=== PATIENT | female | born 1995 | race Caucasian/White ===

== ENCOUNTER 2017-10-11 16:56 | Observation (INO) ==
[2017-10-11] MEDS ORDERED: Sod Chloride 0.9% Inj 1,000 ML IV.SIG ONE (17:27)
--- NOTE | 2017-10-11 17:30 | ED ---
HPI General Chief Complaint: Altered Mental Status Stated Complaint: Ams Time Seen by Provider: 10/11/17 17:14 Source: patient and family Mode of arrival: ambulatory Limitations: altered mental status History of Present Illness HPI narrative: The patient is a 22-year-old female who presents to the emergency department with her mother for altered mental status. The patient apparently went out with several friends last night, was out till 2 AM. The patient minutes to drinking vodka last night and ingesting 2 pills, unknown name. The patient apparently told the mother that they were sleep medications for kidney transplant patients. However, the mother states the patient has been staring at her phone all day, picking at things, and is slow to respond. The patient is alert and oriented 4, denies any commands, but is obviously slow to respond. The patient does not know the name of the medications that she took last night. 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 The patient is allergic to Omnicef. complaint: altered mental status Onset (ago): hour(s) Timing confirmed by: family member Severity: moderate Consistency of symptoms: constant Associated symptoms: denies other symptoms Related Data Allergies Allergy/AdvReac Type Severity Reaction Status Date / Time No Known Allergies Allergy Unverified 10/11/17 17:27 Review of Systems ROS Unobtainable unobtainable due to mental status Except as stated in HPI: all other systems reviewed are negative (History obtained from patient and mother, patient is slow to respond, she denies any physical complaints) [facility] Medical History Medical History Patient denies medical problems (Acute) Surgical History Surgical History No history of previous surgery (Acute) Social History Social History Substance History: Unable to Obtain Smoking Status: Never smoker How Often Do You Have a Drink Containing Alcohol: Never Recent Travel in [facility] within the Last 8 Weeks: No Recent Out of Country Travel within the Last 8 Weeks: Yes Exam Narrative Exam Narrative: GENERAL: Awake, alert, slow to respond 22-year-old female who appears her stated age and is in no acute respiratory distress. SKIN: Focused skin assessment warm/dry. HEAD: Atraumatic. Normocephalic. EYES: Pupils equal and round. 4 mm bilateral and reactive. EOMs are intact. Patient is wearing glasses. She is able to count fingers at a distance of 2 feet without difficulty. ENT: No nasal bleeding or discharge. Mucous membranes pink and moist. Lip smacking noted. NECK: Trachea midline. No JVD. No meningeal signs. CARDIOVASCULAR: Regular, tachycardic with a heart rate of 120. RESPIRATORY: No accessory muscle use. Clear to auscultation. Breath sounds equal bilaterally. GASTROINTESTINAL: Abdomen soft, non-tender, nondistended. MUSCULOSKELETAL: No obvious deformities. No clubbing. No cyanosis. No edema. NEUROLOGICAL: Awake and alert. Slow to respond. Lip smacking noted. Oriented 4. Follows simple commands. Moves all 4 extremities. PSYCHIATRIC: Odd affect. Course Initial Documented Vital Signs Temperature 99.0 F 10/11/17 17:03 Pulse Rate 117 H 10/11/17 17:03 Respiratory Rate 20 10/11/17 17:03 Blood Pressure 114/69 10/11/17 17:03 Pulse Oximetry 100 10/11/17 17:03 Last Documented Vital Signs Temperature 99.0 F 10/11/17 17:03 Pulse Rate 117 H 10/11/17 17:03 Respiratory Rate 20 10/11/17 17:03 Blood Pressure 114/69 10/11/17 17:03 Pulse Oximetry 100 10/11/17 19:45 Medical Decision Making MDM Narrative Medical decision making narrative: IV was established, labs are drawn and sent, and the patient was placed on cardiac telemetry monitoring and continuous pulse oximetry monitoring. EKG was ordered and interpreted. CT the brain was obtained. Tox screen and alcohol level were sent to lab. Poison control was notified by nursing staff. Poison control states that the patient possibly could have ingested some type of medication such as Benadryl with anticholinergic effects. However, the patient is currently 18 hours or so after ingestion and still symptomatic. Therefore, the patient will be a 23 hour observation to medicine, may benefit from evaluation by psychiatry and neurology. Unsure if this is drug ingestion versus acute schizophrenia versus encephalopathy. Laboratory evaluation is unremarkable. Differential Diagnosis Differential Diagnosis: Differential diagnosis includes drug ingestion, substance abuse, schizophrenia, catatonic schizophrenia, drug-induced parkinsonian syndrome, alcohol intoxication, hyponatremia, electrolyte abnormality, encephalitis, encephalopathy. Lab Data Lab results reviewed: Yes I reviewed the patient's lab results. Lab results narrative: Labs are unremarkable. Result diagrams: 10/11/17 17:50 10/11/17 17:50 Lab Results 10/11/17 10/11/17 10/11/17 Range/Units 17:50 17:50 17:50 WBC 7.2 (4.0-11.0) th/mm3 RBC 4.36 (4.00-5.30) mil/mm3 Hgb 13.7 (11.6-15.3) gm/dL Hct 38.8 (35.0-46.0) % MCV 89.0 (80.0-100.0) fL MCH 31.4 (27.0-34.0) pg MCHC 35.3 (32.0-36.0) % RDW 12.8 (11.6-17.2) % Plt Count 254 (150-450) th/mm3 MPV 8.0 (7.0-11.0) fL Neut % (Auto) 68.7 (16.0-70.0) % Lymph % (Auto) 23.7 (9.0-44.0) % [place] % (Auto) 7.1 (0.0-8.0) % Eos % (Auto) 0.1 (0.0-4.0) % Baso % (Auto) 0.4 (0.0-2.0) % Neut # (Auto) 5.0 (1.8-7.7) th/mm3 Lymph # (Auto) 1.7 (1.0-4.8) th/mm3 [place] # (Auto) 0.5 (0.0-0.9) th/mm3 Eos # (Auto) 0.0 (0.0-0.4) th/mm3 Baso # (Auto) 0.0 (0.0-0.2) th/mm3 WBC Differential . Differential Comment Auto diff final PT 10.2 (9.8-11.6) sec INR 1.0 Ratio APTT 25.4 (24.3-30.1) sec Sodium 139 (136-145) meq/L Potassium 4.0 (3.5-5.1) meq/L Chloride 106 (98-107) meq/L Carbon Dioxide 25.1 (21.0-32.0) meq/L Anion Gap 8 (5-15) meq/L BUN 7 (7-18) mg/dL Creatinine 0.78 (0.50-1.00) mg/dL Estimated GFR Greater than 89 (>89) mL/min Random Glucose 95 (74-106) mg/dL Lactic Acid (0.4-2.0) mmol/L Calcium 9.0 (8.5-10.1) mg/dL Total Bilirubin 0.7 (0.2-1.0) mg/dL AST 30 (16-38) U/L ALT 26 (9-42) U/L Alkaline Phosphatase 72 (45-117) U/L Ammonia (11-32) mcmol/L Total Creatine Kinase 548 H (26-192) U/L CK-MB (CK-2) 12.8 H (0.5-3.6) ng/mL CK-MB (CK-2) % 2.3 (0.0-4.0) % Troponin I Less than 0.02 L (0.02-0.05) ng/mL Total Protein 7.6 (6.4-8.2) g/dL Albumin 4.3 (3.4-5.0) g/dL TSH 3.350 (0.358-3.740) uIU/mL Urine Opiates Screen (Neg) Ur Barbiturates Screen (Neg) Ur Amphetamines Screen (Neg) U Benzodiazepines Scrn (Neg) Urine Cocaine Screen (Neg) U Cannabinoids Screen (Neg) Serum Alcohol Less than 3 (0-5) mg/dL 10/11/17 10/11/17 10/11/17 Range/Units 17:50 17:50 19:59 WBC (4.0-11.0) th/mm3 RBC (4.00-5.30) mil/mm3 Hgb (11.6-15.3) gm/dL Hct (35.0-46.0) % MCV (80.0-100.0) fL MCH (27.0-34.0) pg MCHC (32.0-36.0) % RDW (11.6-17.2) % Plt Count (150-450) th/mm3 MPV (7.0-11.0) fL Neut % (Auto) (16.0-70.0) % Lymph % (Auto) (9.0-44.0) % [place] % (Auto) (0.0-8.0) % Eos % (Auto) (0.0-4.0) % Baso % (Auto) (0.0-2.0) % Neut # (Auto) (1.8-7.7) th/mm3 Lymph # (Auto) (1.0-4.8) th/mm3 [place] # (Auto) (0.0-0.9) th/mm3 Eos # (Auto) (0.0-0.4) th/mm3 Baso # (Auto) (0.0-0.2) th/mm3 WBC Differential Differential Comment PT (9.8-11.6) sec INR Ratio APTT (24.3-30.1) sec Sodium (136-145) meq/L Potassium (3.5-5.1) meq/L Chloride (98-107) meq/L Carbon Dioxide (21.0-32.0) meq/L Anion Gap (5-15) meq/L BUN (7-18) mg/dL Creatinine (0.50-1.00) mg/dL Estimated GFR (>89) mL/min Random Glucose (74-106) mg/dL Lactic Acid 1.8 (0.4-2.0) mmol/L Calcium (8.5-10.1) mg/dL Total Bilirubin (0.2-1.0) mg/dL AST (16-38) U/L ALT (9-42) U/L Alkaline Phosphatase (45-117) U/L Ammonia 19 (11-32) mcmol/L Total Creatine Kinase (26-192) U/L CK-MB (CK-2) (0.5-3.6) ng/mL CK-MB (CK-2) % (0.0-4.0) % Troponin I (0.02-0.05) ng/mL Total Protein (6.4-8.2) g/dL Albumin (3.4-5.0) g/dL TSH (0.358-3.740) uIU/mL Urine Opiates Screen Neg (Neg) Ur Barbiturates Screen Neg (Neg) Ur Amphetamines Screen Neg (Neg) U Benzodiazepines Scrn Neg (Neg) Urine Cocaine Screen Neg (Neg) U Cannabinoids Screen Pos H (Neg) Serum Alcohol (0-5) mg/dL Imaging Data Radiologist's impression: Head CT 10/11/17 17:27 CONCLUSION: CT of the brain is negative ECG Data EKG Prior to Arrival: No Attestation: I personally reviewed and interpreted this ECG as follows: Interpretation: EKG reveals normal sinus rhythm with a rate of 98 ectopy noted. Discharge Plan Discharge Disposition Patient Disposition: 30 Still Patient Discharge Condition Condition: Stable Discharge Details Diagnosis: Altered mental status Physicians Team ED Provider: Delon Cohn Primary Care Provider: Primary Care Heather Gilbert Attending Provider: Ernestina Winter Discharge Interventions Interventions: Vital Signs Last Done: 10/11/17 17:03 Status ED Status: Admitted Observation Patient
[2017-10-11 18:01] LABS: Baso % (Auto) 0.4 % (0.0-2.0); Eos % (Auto) 0.1 % (0.0-4.0); Hematocrit 38.8 % (35.0-46.0); Hemoglobin 13.7 gm/dL (11.6-15.3); Lymph # (Auto) 1.7 th/mm3 (1.0-4.8); Lymph % (Auto) 23.7 % (9.0-44.0); Mean Corpuscular HGB Conc 35.3 % (32.0-36.0); Mean Corpuscular Hemoglobin 31.4 pg (27.0-34.0); Mono # (Auto) 0.5 th/mm3 (0.0-0.9); Mono % (Auto) 7.1 % (0.0-8.0); Neut % (Auto) 68.7 % (16.0-70.0); Platelet Count 254 th/mm3 (150-450); Red Blood Count 4.36 mil/mm3 (4.00-5.30); Red Cell Distribution Width 12.8 % (11.6-17.2); White Blood Count 7.2 th/mm3 (4.0-11.0)
[2017-10-11 18:10] LABS: Activated Partial Thrombo Time 25.4 sec (24.3-30.1); Prothrombin Time 10.2 sec (9.8-11.6)
[2017-10-11 18:39] LABS: Alkaline Phosphatase 72 U/L (45-117); Creatine Kinase 548 U/L (26-192); Total Protein 7.6 g/dL (6.4-8.2)
[2017-10-11 18:46] LABS: Alanine Aminotransferase 26 U/L (9-42); Albumin 4.3 g/dL (3.4-5.0); Anion Gap 8 meq/L (5-15); Aspartate Aminotransferase 30 U/L (16-38); Blood Urea Nitrogen 7 mg/dL (7-18); Carbon Dioxide 25.1 meq/L (21.0-32.0); Chloride 106 meq/L (98-107); Glomerular Filtration Rate Greater Than 89 mL/min (>89); Glucose,Random 95 mg/dL (74-106); Sodium 139 meq/L (136-145)
[2017-10-11 19:09] LABS: CKMB Percent 2.3 % (0.0-4.0); Creatine Kinase MB 12.8 ng/mL (0.5-3.6)
[2017-10-11 21:03] LABS: Amphetamine Screen,Urine Neg (Neg); Barbiturate Screen,Urine Neg (Neg); Cannabinoid Screen,Urine Pos (Neg); Cocaine Screen,Urine Neg (Neg)
[2017-10-11 21:10] LABS: Opiate Screen,Urine Neg (Neg)
[2017-10-11] MEDS ORDERED: Acetaminophen 325 MG Tablet PO PRN (21:42)
--- NOTE | 2017-10-11 21:42 | CT ---
EXAM DATE: 10/11/2017 8:59 PM EDT AGE/SEX: 22 years / Female INDICATIONS: Altered mental status. CLINICAL DATA: This is the patient's initial encounter. Patient reports that signs and symptoms have been present for 1 day and indicates a pain score of 0/10. MEDICAL/SURGICAL HISTORY: None. None. RADIATION DOSE: 56.35 CTDI (mGy) COMPARISON: No prior exams available for comparison. TECHNIQUE: CT of the head without contrast. Using automated exposure control and adjustment of the mA and/or kV according to patient size, radiation dose was kept as low as reasonably achievable to ob tain optimal diagnostic quality images. DICOM format image data is available electronically for revi ew and comparison. FINDINGS: Cerebrum: The ventricles are normal for age. No evidence of midline shift, mass lesion, hemorrhage or acute infarction. No extraaxial fluid collections are seen. Posterior Fossa: The cerebellum and brainstem are intact. The 4th ventricle is midline. The cerebe llopontine angle is unremarkable. Extracranial: The visualized portion of the orbits is intact. Skull: The calvaria is intact. No evidence of skull fracture. Negative noncontrasted CT examination. . Electronically signed by: Maikol Hernandez MD 10/11/2017 9:41 PM EDT
[2017-10-11] MEDS ORDERED: Sod Chloride 0.9% Inj 1,000 ML IV.CONT SCH (21:45)
--- NOTE | 2017-10-11 21:58 | ECG ---
Date Performed: 10/11/2017 Time Performed: 18:53:36 PTAGE: 22 years EKG: Baseline artifact present Sinus rhythm NORMAL ECG NO PREVIOUS TRACING DOCTOR: Mathieu Luna Interpretating Date/Time 10/11/2017 21:57:15
--- NOTE | 2017-10-11 23:11 | P.HP ---
History of Present Illness Service: [facility] Primary Care Physician: No Primary Care Physician History of Present Illness: 22-year-old female with no significant past medical history presents to the emergency department with her mother for altered mental status. The patient was apparently out with several people that she had just met last night and drank vodka. She also admits to ingesting 2 pills that are unknown. The patient states that the pills were for kidney transplant patients to help her sleep and that the name began with fatigue. She is alert and oriented 4 however is very slow to respond to questions and commands. She denies any pain. No fever/chills. No observed seizure activity. Patient also has a repetitive lip smacking motion. Review of Systems All other systems reviewed negative except as stated in [facility] - History History Provided By: Family Member - Medical History Medical History: Medical History (Last Updated 10/11/17 @ 18:39 by Linda Sung) Patient denies medical problems - Surgical History Surgical History: Surgical History (Last Updated 10/11/17 @ 18:39 by Linda Sung) No history of previous surgery - Tobacco History Smoking Status: Never smoker - Alcohol History How Often Do You Have a Drink Containing Alcohol: Never - Substance Use History Substance History: Unable to Obtain - Travel History Recent Travel in the [place] Within the Last 8 Weeks: No Recent Travel Out of the Country Within the Last 8 Weeks: Yes - Immunization History Tetanus Immunization: <5 Years Medications and Allergies Active Medications: Active Medications Acetaminophen (Tylenol) 650 mg PO Q4H PRN PRN Reason: Temp > 100.4 Sodium Chloride (Ns Inj) 1,000 mls @ 100 mls/hr IV.CONT .Q10H OLEGARIO Last Admin: 10/11/17 22:09 Dose: 100 mls/hr Ondansetron HCl (Zofran Inj) 4 mg IV.PUSH Q6H PRN PRN Reason: NAUSEA OR VOMITING Sodium Chloride (Ns Flush) 2 ml IV.FLUSH PRN PRN PRN Reason: FLUSH AFTER USING IV ACCESS Allergies Allergy/AdvReac Type Severity Reaction Status Date / Time No Known Allergies Allergy Unverified 10/11/17 17:27 Exam Vital signs: Vital Signs 10/11/17 17:03 10/11/17 19:45 Temperature 99.0 F Pulse Rate 117 H Respiratory Rate 20 Blood Pressure 114/69 Pulse Oximetry 100 100 Intake & Output 10/11/17 10/11/17 10/12/17 06:59 18:59 06:59 Weight 64.864 kg Narrative: Gen.: No acute distress Head: Normocephalic. Atraumatic. EENT: Pupils equal round and reactive to light. Nose without drainage. Airway intact. Throat without injection. Cardiovascular: Regular rate and rhythm. No murmurs, rubs or gallops. Respiratory: Lungs clear to auscultation bilaterally. No wheezes or rhonchi. Abdomen: Soft, nontender, nondistended. No peritoneal signs. Musculoskeletal: No gross deformities. No edema. Skin: No obvious rashes or erythema. Neuro: Sensory and motor intact. Cranial nerves II through XII intact. 5/5 strength throughout although patient is incredibly slow to respond to following commands and moves and speaks as if she is in slow motion. Speech is quiet and mildly slurred. Results - Labs CBC & Chem 7: 10/11/17 17:50 10/11/17 17:50 Labs: Laboratory Results - last 24 hr 10/11/17 10/11/17 10/11/17 17:50 17:50 17:50 WBC 7.2 RBC 4.36 Hgb 13.7 Hct 38.8 MCV 89.0 MCH 31.4 MCHC 35.3 RDW 12.8 Plt Count 254 MPV 8.0 Neut % (Auto) 68.7 Lymph % (Auto) 23.7 [place] % (Auto) 7.1 Eos % (Auto) 0.1 Baso % (Auto) 0.4 Neut # (Auto) 5.0 Lymph # (Auto) 1.7 [place] # (Auto) 0.5 Eos # (Auto) 0.0 Baso # (Auto) 0.0 WBC Differential . Differential Comment Auto diff final PT 10.2 INR 1.0 APTT 25.4 Sodium 139 Potassium 4.0 Chloride 106 Carbon Dioxide 25.1 Anion Gap 8 BUN 7 Creatinine 0.78 Estimated GFR Greater than 89 Random Glucose 95 Lactic Acid Calcium 9.0 Total Bilirubin 0.7 AST 30 ALT 26 Alkaline Phosphatase 72 Ammonia Total Creatine Kinase 548 H CK-MB (CK-2) 12.8 H CK-MB (CK-2) % 2.3 Troponin I Less than 0.02 L Total Protein 7.6 Albumin 4.3 TSH 3.350 Urine Opiates Screen Ur Barbiturates Screen Ur Amphetamines Screen U Benzodiazepines Scrn Urine Cocaine Screen U Cannabinoids Screen Serum Alcohol Less than 3 10/11/17 10/11/17 10/11/17 17:50 17:50 19:59 WBC RBC Hgb Hct MCV MCH MCHC RDW Plt Count MPV Neut % (Auto) Lymph % (Auto) [place] % (Auto) Eos % (Auto) Baso % (Auto) Neut # (Auto) Lymph # (Auto) [place] # (Auto) Eos # (Auto) Baso # (Auto) WBC Differential Differential Comment PT INR APTT Sodium Potassium Chloride Carbon Dioxide Anion Gap BUN Creatinine Estimated GFR Random Glucose Lactic Acid 1.8 Calcium Total Bilirubin AST ALT Alkaline Phosphatase Ammonia 19 Total Creatine Kinase CK-MB (CK-2) CK-MB (CK-2) % Troponin I Total Protein Albumin TSH Urine Opiates Screen Neg Ur Barbiturates Screen Neg Ur Amphetamines Screen Neg U Benzodiazepines Scrn Neg Urine Cocaine Screen Neg U Cannabinoids Screen Pos H Serum Alcohol - Imaging Impressions Head CT 10/11/17 17:27 CONCLUSION: Caprini VTE Risk Assessment Caprini VTE Risk Assessment: No/Low Risk (score <= 1) Caprini Risk Assessment Model: Point Value = 1 Point Value = 2 Point Value = 3 Point Value = 5 Age 41-60 Minor surgery BMI > 25 kg/m2 Swollen legs Varicose veins or History of unexplained or recurrent spontaneous Oral contraceptives or hormone replacement Sepsis (< 1 month) Serious lung disease, including pneumonia (< 1 month) Abnormal pulmonary function Acute myocardial infarction Congestive heart failure (< 1 month) History of inflammatory bowel disease Medical patient at bed rest Age 61-74 Arthroscopic surgery Major open surgery (> 45 min) Laparoscopic surgery (> 45 min) Malignancy Confined to bed (> 72 hours) Immobilizing plaster cast Central venous access Age >= 75 History of VTE Family history of VTE Factor V Leiden Prothrombin [id number] Lupus anticoagulant Anticardiolipin antibodies Elevated serum homocysteine Heparin-induced thrombocytopenia Other congenital or acquired thrombophilia Stroke (< 1 month) Elective arthroplasty Hip, pelvis, or leg fracture Acute spinal cord injury (< 1 month) Prophylaxis Regimen: Total Risk Factor Score Risk Level Prophylaxis Regimen 0-1 Low Early ambulation 2 Moderate Order ONE of the following: *Sequential Compression Device (SCD) *Heparin 5000 units SQ BID 3-4 Higher Order ONE of the following medications: *Heparin 5000 units SQ TID *Enoxaparin/Lovenox 40 mg SQ daily (WT < 150 kg, CrCl > 30 mL/min) *Enoxaparin/Lovenox 30 mg SQ daily (WT < 150 kg, CrCl > 10-29 mL/min) *Enoxaparin/Lovenox 30 mg SQ BID (WT < 150 kg, CrCl > 30 mL/min) AND/OR *Sequential Compression Device (SCD) 5 or more Highest Order ONE of the following medications: *Heparin 5000 units SQ TID (Preferred with Epidurals) *Enoxaparin/Lovenox 40 mg SQ daily (WT < 150 kg, CrCl > 30 mL/min) *Enoxaparin/Lovenox 30 mg SQ daily (WT < 150 kg, CrCl > 10-29 mL/min) *Enoxaparin/Lovenox 30 mg SQ BID (WT < 150 kg, CrCl > 30 mL/min) AND *Sequential Compression Device (SCD) Assessment and Plan - Plan Assessment/plan: 1. Altered mental status Status post alcohol and ingestion of unknown substance Head CT negative for acute process Initial toxicology screen positive only for cannabinoids OB/psych drug screen pending Neurology consulted, appreciate recommendations Repeat EKG at midnight EEG pending FEN Regular diet Electrolytes: 100 and replete as needed NS at 70 cc/hour
[2017-10-12 00:43] LABS: Bilirubin,Urine Negative (Negative); Clarity,Urine Hazy (Clear); Color,Urine Yellow (Yellw/Straw); Glucose,Urine (UA) Negative (Negative); Hyaline Casts,Urine 1 /lpf (0-3); Leukocyte Esterase,Urine Small (Negative); Mucus,Urine Moderate /lpf (Occasional); Nitrite,Urine Negative (Negative); Renal Epithelial Cells,Urine <1 /hpf; Specific Gravity,Urine 1.019 (1.002-1.035); Squamous Epithelial Cell,Urine 3 /hpf (0-5); Transitional Epi Cells,Urine 1 /hpf
[2017-10-12 00:51] LABS: Amphetamine Urine With Conf Neg (Neg); Benzodiazepine Urine With Conf Neg (Neg)
[2017-10-12 07:40] LABS: Baso % (Auto) 0.7 % (0.0-2.0); Eos # (Auto) 0.1 th/mm3 (0.0-0.4); Eos % (Auto) 1.1 % (0.0-4.0); Hematocrit 36.9 % (35.0-46.0); Hemoglobin 12.5 gm/dL (11.6-15.3); Lymph # (Auto) 2.8 th/mm3 (1.0-4.8); Lymph % (Auto) 44.2 % (9.0-44.0); Mean Corpuscular HGB Conc 33.9 % (32.0-36.0); Mean Corpuscular Hemoglobin 30.3 pg (27.0-34.0); Mean Corpuscular Volume 89.5 fL (80.0-100.0); Mono # (Auto) 0.6 th/mm3 (0.0-0.9); Neut # (Auto) 2.8 th/mm3 (1.8-7.7); Platelet Count 231 th/mm3 (150-450); Red Blood Count 4.12 mil/mm3 (4.00-5.30); Red Cell Distribution Width 12.9 % (11.6-17.2); White Blood Count 6.3 th/mm3 (4.0-11.0)
[2017-10-12 07:53] LABS: Anion Gap 7 meq/L (5-15); Blood Urea Nitrogen 6 mg/dL (7-18); Calcium 8.9 mg/dL (8.5-10.1); Chloride 108 meq/L (98-107); Glomerular Filtration Rate Greater Than 89 mL/min (>89); Glucose,Random 90 mg/dL (74-106); Potassium 4.2 meq/L (3.5-5.1); Sodium 140 meq/L (136-145)
--- NOTE | 2017-10-12 09:58 | P.PN ---
Subjective Interval history: Follow-up visit altered mental status secondary to intoxication, cannabis use. Patient seen and examined today. Mother at bedside. Reports she is doing well. Speech is improved, coherent. Responds to questions and commands. Denies pain and discomfort. Denies SOB/ dyspnea. Denies chest pain, palpitations, headaches, dizziness. Denies fevers, chills, n/v/d. Denies hematuria, dysuria. Physical Exam Vital signs: Vital Signs 10/11/17 17:03 10/11/17 19:45 10/11/17 23:22 Temperature 99.0 F Pulse Rate 117 H Respiratory Rate 20 Blood Pressure 114/69 Pulse Oximetry 100 100 100 10/11/17 23:46 10/12/17 04:00 10/12/17 08:29 Temperature 98.4 F 98.1 F 98.0 F Pulse Rate 95 H 77 69 Respiratory Rate 16 18 16 Blood Pressure 107/62 112/72 103/64 Pulse Oximetry 100 100 98 Intake & Output 10/11/17 10/12/17 10/12/17 18:59 06:59 18:59 Intake Total 1000 / 1000 Balance 1000 / 1000 Weight 64.864 kg 64.864 kg Intake: IV 1000 / 1000 NS Inj 1,000 ML @ Wide Open IV. 1000 / 1000 SIG BOLUS ONE Rx#:[id number] Other: Weight On Admission 64.864 kg Narrative: GENERAL: This is a well-nourished, well-developed patient, in no apparent distress. SKIN: Warm and dry HEENT: Normocephalic. Pupils equal round and reactive. Nose without bleeding. Airway patent. NECK: Trachea midline. No JVD. Supple. CARDIOVASCULAR: Regular rate and rhythm without murmurs, gallops, or rubs. RESPIRATORY: Clear to auscultation. Breath sounds equal bilaterally. No wheezes , rales, or rhonchi. GASTROINTESTINAL: Abdomen soft, non-tender, nondistended. Bowel Sounds normoactive x4. MUSCULOSKELETAL: Extremities without clubbing, cyanosis, or edema. NEUROLOGICAL: Awake and alert. Oriented to time, place, person. No focal neuro deficit. Moves all extremities. Normal speech. - Urinary Catheter Management Straight Cath placed during this visit: no Reason for continuing: Not indwelling catheter Results - Labs CBC & Chem 7: 10/12/17 06:55 10/12/17 06:55 Laboratory Results - last 24 hr 10/11/17 10/11/17 10/11/17 00:00 00:00 17:50 WBC 7.2 RBC 4.36 Hgb 13.7 Hct 38.8 MCV 89.0 MCH 31.4 MCHC 35.3 RDW 12.8 Plt Count 254 MPV 8.0 Neut % (Auto) 68.7 Lymph % (Auto) 23.7 Crook % (Auto) 7.1 Eos % (Auto) 0.1 Baso % (Auto) 0.4 Neut # (Auto) 5.0 Lymph # (Auto) 1.7 Crook # (Auto) 0.5 Eos # (Auto) 0.0 Baso # (Auto) 0.0 WBC Differential . Differential Comment Auto diff final PT INR APTT Sodium Potassium Chloride Carbon Dioxide Anion Gap BUN Creatinine Estimated GFR Random Glucose Lactic Acid Calcium Total Bilirubin AST ALT Alkaline Phosphatase Ammonia Total Creatine Kinase CK-MB (CK-2) CK-MB (CK-2) % Troponin I Total Protein Albumin TSH Urine Color Yellow Urine Clarity Hazy H Urine pH 6.0 Ur Specific Otter 1.019 Urine Protein Negative Urine Glucose (UA) Negative Urine Ketones Trace H Urine Occult Blood Negative Urine Nitrate Negative Urine Bilirubin Negative Urine Urobilinogen Less than 2 Ur Leukocyte Esterase Small H Urine RBC Less than 1 Urine WBC 10 H Ur Squamous Epith Cells 3 Ur Transition Epith Cell 1 Ur Renal Epithelial Cell <1 Hyaline Casts 1 Urine Mucus Moderate H Micro UA Comment Culture indicated Urine Culture Comments Culture indicated Urine Opiates Screen Neg Ur Barbiturates Screen Neg Ur Amphetamine Screen Neg Ur Amphetamines Screen U Benzodiazepines Scrn Neg Urine Cocaine Screen Neg U Cannabinoids Screen Pos H Serum Alcohol 10/11/17 10/11/17 10/11/17 17:50 17:50 17:50 WBC RBC Hgb Hct MCV MCH MCHC RDW Plt Count MPV Neut % (Auto) Lymph % (Auto) Crook % (Auto) Eos % (Auto) Baso % (Auto) Neut # (Auto) Lymph # (Auto) Crook # (Auto) Eos # (Auto) Baso # (Auto) WBC Differential Differential Comment PT 10.2 INR 1.0 APTT 25.4 Sodium 139 Potassium 4.0 Chloride 106 Carbon Dioxide 25.1 Anion Gap 8 BUN 7 Creatinine 0.78 Estimated GFR Greater than 89 Random Glucose 95 Lactic Acid Calcium 9.0 Total Bilirubin 0.7 AST 30 ALT 26 Alkaline Phosphatase 72 Ammonia 19 Total Creatine Kinase 548 H CK-MB (CK-2) 12.8 H CK-MB (CK-2) % 2.3 Troponin I Less than 0.02 L Total Protein 7.6 Albumin 4.3 TSH 3.350 Urine Color Urine Clarity Urine pH Ur Specific Otter Urine Protein Urine Glucose (UA) Urine Ketones Urine Occult Blood Urine Nitrate Urine Bilirubin Urine Urobilinogen Ur Leukocyte Esterase Urine RBC Urine WBC Ur Squamous Epith Cells Ur Transition Epith Cell Ur Renal Epithelial Cell Hyaline Casts Urine Mucus Micro UA Comment Urine Culture Comments Urine Opiates Screen Ur Barbiturates Screen Ur Amphetamine Screen Ur Amphetamines Screen U Benzodiazepines Scrn Urine Cocaine Screen U Cannabinoids Screen Serum Alcohol Less than 3 10/11/17 10/11/17 10/12/17 17:50 19:59 06:55 WBC 6.3 RBC 4.12 Hgb 12.5 Hct 36.9 MCV 89.5 MCH 30.3 MCHC 33.9 RDW 12.9 Plt Count 231 MPV 8.0 Neut % (Auto) 44.0 Lymph % (Auto) 44.2 H Crook % (Auto) 10.0 H Eos % (Auto) 1.1 Baso % (Auto) 0.7 Neut # (Auto) 2.8 Lymph # (Auto) 2.8 Crook # (Auto) 0.6 Eos # (Auto) 0.1 Baso # (Auto) 0.0 WBC Differential . Differential Comment Auto diff final PT INR APTT Sodium Potassium Chloride Carbon Dioxide Anion Gap BUN Creatinine Estimated GFR Random Glucose Lactic Acid 1.8 Calcium Total Bilirubin AST ALT Alkaline Phosphatase Ammonia Total Creatine Kinase CK-MB (CK-2) CK-MB (CK-2) % Troponin I Total Protein Albumin TSH Urine Color Urine Clarity Urine pH Ur Specific Otter Urine Protein Urine Glucose (UA) Urine Ketones Urine Occult Blood Urine Nitrate Urine Bilirubin Urine Urobilinogen Ur Leukocyte Esterase Urine RBC Urine WBC Ur Squamous Epith Cells Ur Transition Epith Cell Ur Renal Epithelial Cell Hyaline Casts Urine Mucus Micro UA Comment Urine Culture Comments Urine Opiates Screen Neg Ur Barbiturates Screen Neg Ur Amphetamine Screen Ur Amphetamines Screen Neg U Benzodiazepines Scrn Neg Urine Cocaine Screen Neg U Cannabinoids Screen Pos H Serum Alcohol 10/12/17 06:55 WBC RBC Hgb Hct MCV MCH MCHC RDW Plt Count MPV Neut % (Auto) Lymph % (Auto) Crook % (Auto) Eos % (Auto) Baso % (Auto) Neut # (Auto) Lymph # (Auto) Crook # (Auto) Eos # (Auto) Baso # (Auto) WBC Differential Differential Comment PT INR APTT Sodium 140 Potassium 4.2 Chloride 108 H Carbon Dioxide 25.0 Anion Gap 7 BUN 6 L Creatinine 0.57 Estimated GFR Greater than 89 Random Glucose 90 Lactic Acid Calcium 8.9 Total Bilirubin AST ALT Alkaline Phosphatase Ammonia Total Creatine Kinase CK-MB (CK-2) CK-MB (CK-2) % Troponin I Total Protein Albumin TSH Urine Color Urine Clarity Urine pH Ur Specific Otter Urine Protein Urine Glucose (UA) Urine Ketones Urine Occult Blood Urine Nitrate Urine Bilirubin Urine Urobilinogen Ur Leukocyte Esterase Urine RBC Urine WBC Ur Squamous Epith Cells Ur Transition Epith Cell Ur Renal Epithelial Cell Hyaline Casts Urine Mucus Micro UA Comment Urine Culture Comments Urine Opiates Screen Ur Barbiturates Screen Ur Amphetamine Screen Ur Amphetamines Screen U Benzodiazepines Scrn Urine Cocaine Screen U Cannabinoids Screen Serum Alcohol - Imaging Impressions Head CT 10/11/17 17:27 CONCLUSION: - Procedures None Assessment and Plan - Plan 22-year-old female with no significant past medical history presents to the emergency department with her mother for altered mental status. The patient was apparently out with several people that she had just met last night and drank vodka. Altered mental status Status post alcohol and ingestion of unknown substance -Head CT negative for acute process -Initial toxicology screen positive only for cannabinoids -OB/psych drug screen pending -Neurology consulted, will cancel for now. Improved mental status -Repeat EKG at midnight -EEG cancel -Awake and alert. Appears improved MS. -PT eval and treat DVT Prop SCD, early ambulation Discharge patient to home Condition on discharge: Improved Regular Diet as tolerated Ad Mahi activity. No driving 24hrs Rx written: None Follow-up with primary care physician Code Status: Full Code Discussed Condition With: Patient, Mother, Nursing Discharge Planning: fernanda Brown when cleared by neurology
--- NOTE | 2017-10-13 09:51 | MG ---
cc: Tre Tomlinson MD EEG NUMBER: [id number] NOTE: A 22-year-old, change in mental status. FINDINGS: 12 Hz, 60 microvolt, symmetric and normal-appearing posterior and diffuse rhythm is seen. There is a lot of movement artifact. Overall the recording is synchronous and symmetric. I do not see any epileptiform or seizure activity. Photic stimulation performed without significant posterior driving. The patient felt lightheaded. Hyperventilation was performed without significant change in the background. Feeling lightheaded did not correlate with any abnormality. IMPRESSION: Normal awake electrocardiogram. No evidence for a focal or diffuse abnormality. MD YOHANNES Carrera/ZAY , 09:36 AM , 09:41 AM
== END 2017-10-12 13:27 | disposition home or self-care (01) ==
LOC: NEPHCDU 16:56 → NEPD 16:56 → NEDA 16:56 → NEPHCDU 23:38
PROVIDERS: ADMIT Family Medicine; ATTEND Family Medicine
DX: R41.82 Altered mental status, unspecified; F12.90 Cannabis use, unspecified, uncomplicated; R82.99 Other abnormal findings in urine; R00.0 Tachycardia, unspecified; B96.89 Other specified bacterial agents as the cause of diseases classified elsewhere